=== PATIENT | male | born 1985 | race Caucasian/White ===

== ENCOUNTER 2017-09-03 21:56 | Emergency (ER) | payer OTHER ==
[~2017-09-03] VITALS: Ht 188 cm; Wt 106.1 kg
[~2017-09-03 21:56] MED LIST: Baclofen10 MG PO; Bactrim Ds Tab1 EACH PO; CEPH500; CETI5 PO; CRUTCH3 USE; CYCL10 PO; Cyclobenzaprine5 MG PO; DELTASONE20 MG PO; Esgic Tablet1 EACH PO; Flonase 0.05% N16 GM; HYDACE5325 PO; HYDR1TAB94 PO; IBUP600 PO; IBUP800 PO; LISI5 PO; METF500 PO; METO100ER PO; METPRE4DP PO; NAPR500; NAPR500 PO; NAPR550 PO; NORT50; Naprosyn500 MG PO; Norco 5-325 Ta1 EACH PO; OXCA150; OXYACE5T PO; PROM25 PO; Percocet 5-3251 EACH PO; RXNAPNA550 PO; Robaxin500 MG PO; Ultram50 MG PO; Valium5 MG PO
[2018-06-18] MEDS ORDERED: Voltaren100 GM TOP (12:42)
[2018-06-18] MEDS ORDERED: TRAM50 PO (12:42)
[2018-06-18] MEDS ORDERED: Prednisone20 MG PO (12:42)
[2018-07-29] MEDS ORDERED: IBUP800 PO (20:56)
[2018-07-29] MEDS ORDERED: Robaxin-750750 MG PO (20:56)
[2018-07-29] MEDS ORDERED: Percocet 5-3251 EACH PO (20:56)
[2018-08-02] MEDS ORDERED: Percocet 5-3251 EACH PO (15:34)
[2018-08-02] MEDS ORDERED: Prednisone20 MG PO (15:34)
[2018-08-02] MEDS ORDERED: Robaxin-750750 MG PO (15:36)
== END 2017-09-04 00:22 | disposition home or self-care (01) ==
LOC: ER 21:56
DX: S20.212A Contusion of left front wall of thorax, initial encounter (principal); K52.9 Noninfective gastroenteritis and colitis, unspecified; X58.XXXA Exposure to other specified factors, initial encounter; Z88.0 Allergy status to penicillin; Z79.899 Other long term (current) drug therapy; Z79.84 Long term (current) use of oral hypoglycemic drugs
CPT/HCPCS: 71046; 99283

== ENCOUNTER 2017-10-24 14:09 | Emergency (ER) | payer OTHER ==
[~2017-10-24] VITALS: Ht 190.5 cm; Wt 95.2 kg
[2017-10-24] MEDS ORDERED: IBUP400 PO (14:25)
[2017-10-24] MEDS ORDERED: IBUP800 PO (15:05)
[2017-10-24] MEDS ORDERED: Norco 5-325 Ta1 EACH PO (15:05)
[2018-06-18] MEDS ORDERED: Voltaren100 GM TOP (12:42)
[2018-06-18] MEDS ORDERED: TRAM50 PO (12:42)
[2018-06-18] MEDS ORDERED: Prednisone20 MG PO (12:42)
[2018-07-29] MEDS ORDERED: Robaxin-750750 MG PO (20:56)
[2018-07-29] MEDS ORDERED: IBUP800 PO (20:56)
[2018-07-29] MEDS ORDERED: Percocet 5-3251 EACH PO (20:56)
[2018-08-02] MEDS ORDERED: Percocet 5-3251 EACH PO (15:34)
[2018-08-02] MEDS ORDERED: Prednisone20 MG PO (15:34)
[2018-08-02] MEDS ORDERED: Robaxin-750750 MG PO (15:36)
== END 2017-10-24 15:17 | disposition home or self-care (01) ==
LOC: ER 14:09
DX: S63.642A Sprain of metacarpophalangeal joint of left thumb, initial encounter (principal); Z88.0 Allergy status to penicillin; X50.9XXA Other and unspecified overexertion or strenuous movements or postures, initial encounter
CPT/HCPCS: 29125; 73130; 99283

== ENCOUNTER 2017-11-12 15:30 | Emergency (ER) | payer OTHER ==
[~2017-11-12] VITALS: Ht 190.5 cm; Wt 113.4 kg
[~2017-11-12 15:30] MED LIST changes: +IBUP400 PO
[2017-11-12] MEDS ORDERED: LISI5 PO (15:40)
[2017-11-12] MEDS ORDERED: METF500 PO (15:40)
[2017-11-12] MEDS ORDERED: METO100ER PO (15:40)
[2017-11-12] MEDS ORDERED: CYCL10 PO (17:27)
[2018-06-18] MEDS ORDERED: Voltaren100 GM TOP (12:42)
[2018-06-18] MEDS ORDERED: Prednisone20 MG PO (12:42)
[2018-06-18] MEDS ORDERED: TRAM50 PO (12:42)
[2018-07-29] MEDS ORDERED: IBUP800 PO (20:56)
[2018-07-29] MEDS ORDERED: Percocet 5-3251 EACH PO (20:56)
[2018-07-29] MEDS ORDERED: Robaxin-750750 MG PO (20:56)
[2018-08-02] MEDS ORDERED: Prednisone20 MG PO (15:34)
[2018-08-02] MEDS ORDERED: Percocet 5-3251 EACH PO (15:34)
[2018-08-02] MEDS ORDERED: Robaxin-750750 MG PO (15:36)
== END 2017-11-12 17:46 | disposition home or self-care (01) ==
LOC: ER 15:30
DX: M54.2 Cervicalgia (principal); Z88.0 Allergy status to penicillin; Z79.84 Long term (current) use of oral hypoglycemic drugs; E11.9 Type 2 diabetes mellitus without complications; Z79.899 Other long term (current) drug therapy; V43.52XA Car driver injured in collision with other type car in traffic accident, initial encounter
CPT/HCPCS: 72040; 96372; 99283; J1885

== ENCOUNTER 2019-01-05 02:16 | Inpatient (IN) | payer OTHER, BC ==
[~2019-01-05] VITALS: Ht 190.5 cm; Wt 114.1 kg
[~2019-01-05 02:16] MED LIST changes: +Prednisone20 MG PO; +Robaxin-750750 MG PO; +TRAM50 PO; +Voltaren100 GM TOP
[2019-01-05 02:48] LABS: BASOPHILS ABSOLUTE AUTO 0.08 K/mm3 (0.00-0.23); BASOPHILS PERCENT AUTO 1 % (0-2); EOSINOPHILS ABSOLUTE AUTO 0.07 K/mm3 (0.00-0.68); EOSINOPHILS PERCENT AUTO 0 % (0-6); Hematocrit 48.5 % (37.0-53.0); Mean Corpuscular Volume 85 fL (80-100); Mean Platelet Volume 8.9 fL (9.1-12.4); Platelet Count 239 K/mm3 (150-400); RDW Coefficient Variation 12.7 % (11.7-14.2); RDW Standard Deviation 39.3 fL (35.1-46.3); Red Blood Cell Count 5.73 M/mm3 (4.30-5.90)
[2019-01-05] MEDS ORDERED: INSULANPEN SC (02:51)
[2019-01-05] MEDS ORDERED: TRAM50 PO (02:52)
[2019-01-05 03:16] LABS: IMMATURE GRAN ABSOLUTE AUTO 0.07 K/mm3 (0.00-0.10); IMMATURE GRAN PERCENT AUTO 0 % (0-1); LYMPHOCYTES ABSOLUTE AUTO 3.01 K/mm3 (0.84-5.20); LYMPHOCYTES PERCENT AUTO 19 % (21-46); MONOCYTES ABSOLUTE AUTO 0.72 K/mm3 (0.16-1.47); MONOCYTES PERCENT AUTO 5 % (4-13); Mean Corpuscular HGB 31.6 pg (26.0-34.0); Mean Corpuscular HGB Conc 37.3 g/dL (31.5-36.5); NEUTROPHILS ABSOLUTE AUTO 11.75 K/mm3 (1.96-9.15); NEUTROPHILS PERCENT AUTO 75 % (41-73)
[2019-01-05 03:17] LABS: Hemoglobin 18.1 g/dL (13.5-17.5)
[2019-01-05 03:40] LABS: Alanine Aminotransfer (ALT/SGP 39 U/L (12-78); Albumin, Blood 4.5 g/dL (3.4-5.0); Albumin/Globulin Ratio 1.2 (0.8-1.8); Alk Phos 132 U/L (50-136); Anion Gap 9 mmol/L (6-16); Aspartate Aminotrans (AST/SGOT 14 U/L (12-37); Bilirubin, Total 0.5 mg/dL (0.1-1.0); Blood Urea Nitrogen 17 mg/dL (8-24); Bun/Creatinine Ratio 20.8 (12.0-20.0); CO2, Blood 25 mmol/L (21-32); Calcium, Blood 9.1 mg/dL (8.5-10.1); Chloride, Blood 96 mmol/L (98-108); Creatinine, Blood 0.82 mg/dL (0.60-1.20); Globulin, Blood 3.7 g/dL (2.2-4.0); Glomerular Filtration Rate >60 (60-); Glucose, Blood 428 mg/dL (70-99); Potassium, Blood 4.1 mmol/L (3.5-5.5); Sodium, Blood 130 mmol/L (136-145); Total Protein, Blood 8.2 g/dL (6.4-8.2)
--- NOTE | 2019-01-05 06:16 | NUR ---
BLOOD SUGAR 267. KRISTEN ORDERS TO START INSULIN PER EMAR. HUMALOG AT 0730 MED SS AND LANTUS 20 UNITS AT 0900. WILL CONT TO MONITOR.
[2019-01-05 06:48] LABS: Source, Urine Clean Catch
[2019-01-05 06:52] LABS: Bilirubin, Urine Neg (Neg); Blood, Urine 1+ (Neg); Glucose Qualitative, Urine 4+ (Neg); Ketones, Urine 4+ (Neg); Leukocyte Esterase, Urine Neg (Neg); Nitrite, Urine Neg (Neg); Protein, Urine 2+ (Neg); Specific Gravity, Urine 1.015 (1.003-1.022); Urobilinogen, Urine NORM (Normal)
[2019-01-05 07:04] LABS: Appearance, Urine Clear (Clear); Bacteria Not Seen /hpf; Color, Urine Yellow (P-Yellow); Red Blood Cells, Urine Rare /hpf (0-2); Squamous Epithelial Cells Rare /hpf (Few); White Blood Cells, Urine Not Seen /hpf (0-5)
--- NOTE | 2019-01-05 07:19 | NUR ---
SHIFT SUMMARY/TRANSFER NOTE: PT ARRIVES TO UNIT VIA STRETCHER AND AMBULATES INDEPENDENTLY TO BED. PT ADMITTED FOR PANCREATITIS, AND REPORTS INJECTING "100 UNITS INSULIN" EVERY NIGHT AND DOES NOT CHECK HIS BLOOD SUGAR. PT IS A&O X 4. C/O PERIUMBILICAL PAIN, RATED 10/10. ADMINISTERED 50 MCG FENTANYL PER ORDERS. NS RUNNING @ 125 ML/HR X 2 BAGS. ON 1L VIA NC PT O2 SATS 88% IN ED. 95% UPON ARRIVAL. WILL CONT TO MONITOR AND PROVIDE CARE UNTIL PRESUMED BY ONCOMING RN.
[2019-01-05 07:40] LABS: Cholesterol 315 mg/dL (50-200)
[2019-01-05 08:12] LABS: CHOL/HDL RATIO Unable to Calculate; Triglycerides >4000 mg/dL (30-140)
[2019-01-05 08:13] LABS: LDL/HDL RATIO Unable to Calculate; Low Density Lipoprotein Chol Unable to Calculate mg/dL (0-110); Very Low Density Lipoprot Chol Unable to Calculate mg/dL (6-28)
--- NOTE | 2019-01-05 08:55 | NUR ---
Tiffany PETERSON called Dr. Calderon Re: pt c/o unmanaged pain 10/10 after given Fentanyl. Dilaudid ordered & given. Pt is now resting comfortably, easily aroused and RR: 18.
--- NOTE | 2019-01-05 10:10 | NUR ---
Pain continues to be unmanaged followed with nausea. Physician notified, pain medication frequency changed to Q 2 hours prn.
--- NOTE | 2019-01-05 10:46 | NUR ---
Patient appears to be resting comfortable in bed. Easily aroused, RR 20.
--- NOTE | 2019-01-05 15:54 | NUR ---
VS FOLLOW-UP BP 141/86 HR 134 RR 16. PT STATES BASELINE TACHYCARDIA IN 130's EVERSINCE HE HAD BACTERIAL MENINGITIS WHEN YOUNGER. WILL CONTINUE TO MONITOR VS. PT IS AFEBRILE AT 97.2 AND 95% O2 @ 1 LPM.
--- NOTE | 2019-01-05 17:40 | NUR ---
Dr. Calderon notified Re: BP 153/94 HR 130. Metoprolol was added to EMAR.
--- NOTE | 2019-01-05 17:44 | NUR ---
Shift Summary AO x 4, pleasant and cooperative with care. Able to make needs known and calls appropriately. Family has been visiting. Medicated for pain x 6, for nausea x 6 this shift. Independent in room. Refer to previous notes Re: VS. Will continue to monitor until shift report given to next RN.
--- NOTE | 2019-01-05 18:05 | NUR ---
STUDENT HAD CARE OF PT TODAY, PLEASE REFER TO STUDENT NOTE FOR SHIFT SUMMARY.
[2019-01-06 05:27] LABS: BASOPHILS ABSOLUTE AUTO 0.03 K/mm3 (0.00-0.23); BASOPHILS PERCENT AUTO 0 % (0-2); EOSINOPHILS ABSOLUTE AUTO 0.04 K/mm3 (0.00-0.68); EOSINOPHILS PERCENT AUTO 0 % (0-6); Hematocrit 50.3 % (37.0-53.0); Hemoglobin 17.7 g/dL (13.5-17.5); IMMATURE GRAN ABSOLUTE AUTO 0.07 K/mm3 (0.00-0.10); IMMATURE GRAN PERCENT AUTO 1 % (0-1); LYMPHOCYTES PERCENT AUTO 17 % (21-46); MONOCYTES ABSOLUTE AUTO 0.67 K/mm3 (0.16-1.47); MONOCYTES PERCENT AUTO 5 % (4-13); Mean Corpuscular HGB 30.4 pg (26.0-34.0); Mean Corpuscular HGB Conc 35.2 g/dL (31.5-36.5); Mean Corpuscular Volume 86 fL (80-100); NEUTROPHILS ABSOLUTE AUTO 10.06 K/mm3 (1.96-9.15); NEUTROPHILS PERCENT AUTO 77 % (41-73); Platelet Count 218 K/mm3 (150-400); RDW Coefficient Variation 13.7 % (11.7-14.2); RDW Standard Deviation 42.7 fL (35.1-46.3); Red Blood Cell Count 5.82 M/mm3 (4.30-5.90); White Blood Cell Count 13.07 K/mm3 (4.00-11.30)
[2019-01-06 06:14] LABS: Alanine Aminotransfer (ALT/SGP 30 U/L (12-78); Albumin, Blood 3.3 g/dL (3.4-5.0); Albumin/Globulin Ratio 0.8 (0.8-1.8); Alk Phos 91 U/L (50-136); Anion Gap 9 mmol/L (6-16); Aspartate Aminotrans (AST/SGOT 53 U/L (12-37); Bilirubin, Total 1.1 mg/dL (0.1-1.0); Blood Urea Nitrogen 8 mg/dL (8-24); Bun/Creatinine Ratio 15.2 (12.0-20.0); CO2, Blood 23 mmol/L (21-32); Calcium, Blood 8.4 mg/dL (8.5-10.1); Chloride, Blood 106 mmol/L (98-108); Creatinine, Blood 0.53 mg/dL (0.60-1.20); Globulin, Blood 4.4 g/dL (2.2-4.0); Glomerular Filtration Rate >60 (60-); Glucose, Blood 183 mg/dL (70-99); Magnesium, Blood 2.1 mg/dL (1.6-2.4); Potassium, Blood 4.6 mmol/L (3.5-5.5); Sodium, Blood 138 mmol/L (136-145); Total Protein, Blood 7.7 g/dL (6.4-8.2)
--- NOTE | 2019-01-06 07:40 | NUR ---
a+o able to walk to bathroom, pain reduced with q2 hourly pain meds, calllight inreach, walking rounds completed with day staff
[2019-01-06] MEDS ORDERED: GABA300 PO (11:40)
[2019-01-06] MEDS ORDERED: METO100 PO (11:50)
--- NOTE | 2019-01-06 12:33 | NUR ---
PT HAS BEEN TACHY IN THE 130'S, DR LIRA INCREASED METOPROLOL TO 50MG BID, PT REPORTS HE NORMALLY TAKES METOPROLOL TARTRATE 100MG PO BID AT HOME, THIS WAS CONFIRMED WITH [facility]. DR LIRA NOTIFIED AND ORDER CHANGED TO 100MG BID WITH A ONE TIME DOSE OF 50MG NOW.
--- NOTE | 2019-01-06 17:22 | NUR ---
SHIFT SUMMARY- PT A/OX4, INDEP IN ROOM AND HALLS. PT REMAINS NPO T/O THE SHIFT. PT RECEIVING 2MG IV DILAUDID APROX EVERY 2 HOURS, THIS EVENING PT REPORTS SLIGHT IMPROVEMENT TO PAIN OF A 5/10, ONLY 1MG IV DILAUDID WITH GOOD RESULTS. REGLAN GIVEN X1 THIS AM, PT HAS DENIED ANY FURTHER NAUSEA. PT HAS REMAINED TACHY T/O THE DAY, PT NOTED TO BE ON METOPROLOL OF 100MG BID AT HOME, PT ONLY RECEIVING 25MG BID AT THE HOSPITAL. DOSE CHANGED TO HOME DOSE AND ONE TIME DOSE OF 50MG GIVEN THIS AFTERNOON. CARPENTER GENERAL SPOKE WITH PT REGARDING A1C AND DIABETES, PT WILL NEED A SCRIPT FOR GLUCOSE METER AND TEST STRIPS UPON DISCHARGE WELL A REFERRAL TO DR LOPEZ.
[2019-01-07 04:31] LABS: BASOPHILS ABSOLUTE AUTO 0.01 K/mm3 (0.00-0.23); BASOPHILS PERCENT AUTO 0 % (0-2); EOSINOPHILS ABSOLUTE AUTO 0.02 K/mm3 (0.00-0.68); EOSINOPHILS PERCENT AUTO 0 % (0-6); Hematocrit 46.1 % (37.0-53.0); Hemoglobin 15.3 g/dL (13.5-17.5); IMMATURE GRAN ABSOLUTE AUTO 0.05 K/mm3 (0.00-0.10); IMMATURE GRAN PERCENT AUTO 1 % (0-1); LYMPHOCYTES ABSOLUTE AUTO 1.18 K/mm3 (0.84-5.20); LYMPHOCYTES PERCENT AUTO 14 % (21-46); MONOCYTES ABSOLUTE AUTO 0.65 K/mm3 (0.16-1.47); MONOCYTES PERCENT AUTO 8 % (4-13); Mean Corpuscular HGB 29.7 pg (26.0-34.0); Mean Corpuscular HGB Conc 33.2 g/dL (31.5-36.5); Mean Platelet Volume 9.1 fL (9.1-12.4); NEUTROPHILS ABSOLUTE AUTO 6.65 K/mm3 (1.96-9.15); NEUTROPHILS PERCENT AUTO 78 % (41-73); Platelet Count 145 K/mm3 (150-400); RDW Coefficient Variation 13.8 % (11.7-14.2); RDW Standard Deviation 46.1 fL (35.1-46.3); Red Blood Cell Count 5.16 M/mm3 (4.30-5.90); White Blood Cell Count 8.56 K/mm3 (4.00-11.30)
[2019-01-07 04:36] LABS: Mean Corpuscular Volume 89 fL (80-100)
[2019-01-07 04:56] LABS: Anion Gap 7 mmol/L (6-16); Blood Urea Nitrogen 11 mg/dL (8-24); Bun/Creatinine Ratio 17.2 (12.0-20.0); CO2, Blood 27 mmol/L (21-32); Calcium, Blood 8.2 mg/dL (8.5-10.1); Chloride, Blood 104 mmol/L (98-108); Creatinine, Blood 0.64 mg/dL (0.60-1.20); Glomerular Filtration Rate >60 (60-); Glucose, Blood 164 mg/dL (70-99); Magnesium, Blood 2.1 mg/dL (1.6-2.4); Phosphorus, Blood 1.6 mg/dL (2.5-4.9); Sodium, Blood 138 mmol/L (136-145)
--- NOTE | 2019-01-07 07:28 | NUR ---
call light in reach, infusing, room air, walking rounds completed with day staff.
--- NOTE | 2019-01-07 15:38 | NUR ---
SUMMARY PT IS A/O X4, UP IND IN ROOM. DX PANCREATITIS. HE STATE CONTINUING L LOWER ABDOMINAL PAIN IMPROVING SOMEWHAT, STATE @ X'S MILD NAUSEA. DR LIRA IN TO SEE HIM THIS AM EXPLAIN LIPASE DROP SIGNIFICANTLY FROM 4988 @ ADMIT TO 1372 THIS AM. STOP IVF, STATE OK NO IV SITE, CHANGE MEDS TO ORAL FORM, ADV DIET TOLERATED. CL FOR LUNCH TOLERATED WELL, ADV TO FL. HAVE GIVEN PO DILAUDID 2MG APPROX Q4 FOR PAIN RELIEF/CONTROL. VS BASELINE, HR TACHY 110'S, PT STATE THIS IS CHRONIC-ON METOPROLOL. ENCOURAGED PT TO AMBULATE.
--- NOTE | 2019-01-07 23:43 | NUR ---
10 PAIN PT C/O 06/03 PAIN TO LOWER QUADRANT, UNRESOLVED BY PO MEDS IN EMAR. RESPIRATIONS 40, PULSE 109, BP 124/74, TEMP 96.6. PLACED CALL TO SO TO REPORT FINDINGS. ORDERS 10MG IV DILAUDID Q2H PRN X2 DOSES. LUCY MC, PSYCHIATRY PHYSICIAN, AT BEDSIDE OBTAINING IV ACCESS THEN WILL ADMINISITER IV NARCOTIC.
--- NOTE | 2019-01-08 01:41 | NUR ---
PT NOW C/O OF RLQ PAIN AND PAIN WITH URINATION ("BURNING"). PT REPORTS PAIN c URINATION IS NEW. MEDICATED WITH 50 MG TRAMADOL. WILL PASS THIS ON IN DAYSHIFT REPORT.
[2019-01-08 05:34] LABS: Anion Gap 9 mmol/L (6-16); Blood Urea Nitrogen 13 mg/dL (8-24); CO2, Blood 26 mmol/L (21-32); Calcium, Blood 8.5 mg/dL (8.5-10.1); Chloride, Blood 101 mmol/L (98-108); Creatinine, Blood 0.62 mg/dL (0.60-1.20); Glomerular Filtration Rate >60 (60-); Glucose, Blood 161 mg/dL (70-99); Magnesium, Blood 2.1 mg/dL (1.6-2.4); Phosphorus, Blood 2.7 mg/dL (2.5-4.9); Potassium, Blood 3.7 mmol/L (3.5-5.5); Sodium, Blood 136 mmol/L (136-145)
--- NOTE | 2019-01-08 05:43 | NUR ---
SHIFT SUMMARY - PT WITH INCREASED PAIN TONIGHT, C/O PAIN TO SEVERAL DIFFERENT LOCATIONS IN THE ABDOMEN. WHEN ASSESSING PAIN AND LOCATION, PT POINTS AT DIFFERENT SPOTS DURING EACH ASSESSMENT. RLQ, LLQ, AND RUQ ARE ALL PAINFUL. PT REPORTS PAIN IS 10/10. RECIEVED ORDER FROM RIZZO TO REGAIN IV ACCESS AND 2 DOSES OF 1 MG IV DILAUDID Q2H PRN. INFORMED PT THAT ONLY 2 DOSES WERE AVAILABLE. PT REQUIRED BOTH DOSES WITHIN 2-HR TIME FRAME. PT ALSO RECIEVES 2MG PO DILAUDID AND 50MG PO TRAMADOL PER ORDERS. PT REPORTS PAIN NEVER RESOLVES. BP REMAINS STABLE THROUGH ALL EVENTS; PT CHRONICALLY TACHYCARDIAC 110s-120s. AFEBRILE. LIPASE THIS AM IS WNL AT 381. CBG MONITORED Q6H. ENCOURAGED PT TO TRY SOFT FOODS (CURRENTLY TOLERATING FULL LIQUIDS), HOWEVER PT REFUSED. NO OTHER CHANGES TO REPORT. WILL CONT TO MONITOR AND PROVIDE CARE UNTIL PRESUMED BY ONCOMING RN.
[2019-01-08 06:07] LABS: Source, Urine Clean Catch
[2019-01-08 06:12] LABS: Bilirubin, Urine Neg (Neg); Blood, Urine 2+ (Neg); Glucose Qualitative, Urine 4+ (Neg); Ketones, Urine 4+ (Neg); Leukocyte Esterase, Urine Neg (Neg); Nitrite, Urine Neg (Neg); Protein, Urine 3+ (Neg); Urobilinogen, Urine 1+ (Normal)
[2019-01-08 06:45] LABS: Appearance, Urine Clear (Clear); Bacteria Rare /hpf; Color, Urine Yellow (P-Yellow); Mucus Light (0-Heavy); White Blood Cells, Urine 0-2 /hpf (0-5)
[2019-01-08 06:46] LABS: Squamous Epithelial Cells Rare /hpf (Few)
--- NOTE | 2019-01-08 08:53 | NUR ---
NOTIFIED DR. LIRA PT REPORTS PO PAIN MEDICATION NOT BRINGING HIS PAIN LEVEL DOWN. DR. LIRA REPORTS HE IS NOT GOING TO ORDER ANYTHING FURTHER FOR PAIN DUE TO HX OF FREQUENT PAIN MED SEEKING BEHAVIOR IN THE ER AND HE IS PREPARING PT FOR D/C. PT'S LIPASE LEVEL WNL. NO NEW ORDERS AT THIS TIME.
--- NOTE | 2019-01-08 10:35 | NUR ---
DR. LIRA SAID TO ORDER ONE TIME DOSE OF GI COCKTAIL TO BE GIVEN NOW, MALOX 30ML Q1H PRN AND 40MG PO PROTONIX BID. NO OTHER NEW ORDERS AT THIS TIME.
[2019-01-08] MEDS ORDERED: Percocet 7.5-31 EACH PO (11:04)
--- NOTE | 2019-01-08 18:16 | NUR ---
SHIFT SUMMARY- PT AXO X4. PT C/O SEVERE RLQ/LLQ PAIN. MEDS GIVEN PER EMAR. BOWEL TONES HYPOACTIVE. PT C/O NAUSEA. MEDS GIVEN PER EMAR. PT TOLERATED DINNER. PT'S PAIN LEVEL DOWN TO A 5/10 THIS PM. DENIES SOB. RESP E/U ON RA. PT WENT FOR CT OF ABDOMEN TODAY. INDEPENDENT IN THE ROOM. NO OTHER SIGNIFICANT CHANGES THIS SHIFT.
--- NOTE | 2019-01-09 05:05 | NUR ---
PATIENT C/O PAIN 4-02/01, REQUESTED PAIN MEDS MUCH OF THE SHIFT. AT ONE POINT HE C/O A HEADACHE AND I REQUESTED IBUPROFEN FOR HIM, AND GOT A 1X DOSE NOW FOR 600 MG. PATIENT RECEIVED PAIN MEDS PER ORDER, ALSO RECEIVED INSULIN COVERAGE OF HIS POC GLUCOSE LEVELS. JORDAN CONTINUE DID YOU TIRED OF ALL THAT IN
--- NOTE | 2019-01-09 12:42 | NUR ---
DISCONTINUED UNCHARTED IV PT BEING DISCHARGED HOME TODAY. IV DC'D WNL. CATHETER INTACT. NO S/SX OF INFILTRATION. PT TOLERATED WELL.
[2019-01-09] MEDS ORDERED: PANT40 PO (12:55)
[2019-01-09] MEDS ORDERED: ALMACONE PO (12:55)
--- NOTE | 2019-01-09 13:58 | NUR ---
DISCHARGE NOTE DISCONTINUED IV WNL. PRESCRIPTIONS FAXED TO PREFERED PHARMACY. HARDCOPY PRESCRIPTIONS PROVIDED TO PT. PROVIDED PT WITH HARDCOPY AND VERBAL INSTRUCTIONS FOR DISCHARGE INCLUDING: DIAGNOSES, PRESCRIPTIONS AND FOLLOW UP APPOINTMENTS. GATHERED PT'S PERSONAL BELONGINGS. PT DRESSED SELF IN PERSONAL CLOTHING. TARRING MACHINE OPERATOR ACCOMPANIED PT OUT VIA WHEELCHAIR. PT AND FAMILY HAD NO FURTHER QUESTIONS.
== END 2019-01-09 13:23 | disposition home or self-care (01) | DRG 440 ==
LOC: ER 02:16 → MEDS 04:37 → ENPENDDIS 01-08 12:32 → EDPENDDIS 01-08 12:32 → MEDS 01-09 13:23
PROVIDERS: Emergency Medicine; Hospitalist; ADMIT Internal Medicine
DX: K85.90 Acute pancreatitis without necrosis or infection, unspecified (principal); E11.65 Type 2 diabetes mellitus with hyperglycemia; Z79.4 Long term (current) use of insulin; I10 Essential (primary) hypertension; E78.49 Other hyperlipidemia; E78.1 Pure hyperglyceridemia; E86.0 Dehydration; R00.0 Tachycardia, unspecified
CPT/HCPCS: 36415; 74177; 76705; 80048; 80053; 80061; 81001; 82947; 83036; 83690; 83735; 84100; 85025; 85027; 96361; 96374; 96375; 96376; 99285-25; J1170; J1650; J2405; J2550; J2765; J3010; J7030; Q9967

== ENCOUNTER 2019-01-11 12:10 | Inpatient (IN) | payer BC, OTHER ==
[~2019-01-11] VITALS: Ht 190.5 cm; Wt 112.6 kg
[~2019-01-11 12:10] MED LIST changes: +ALMACONE PO; +GABA300 PO; +INSULANPEN SC; +METO100 PO; +PANT40 PO; +Percocet 7.5-31 EACH PO
[2019-01-11 13:29] LABS: Hematocrit 43.4 % (37.0-53.0); Hemoglobin 14.6 g/dL (13.5-17.5); Mean Corpuscular HGB 29.3 pg (26.0-34.0); Mean Corpuscular HGB Conc 33.6 g/dL (31.5-36.5); Mean Corpuscular Volume 87 fL (80-100); Mean Platelet Volume 9.2 fL (9.1-12.4); Platelet Count 308 K/mm3 (150-400); RDW Coefficient Variation 13.2 % (11.7-14.2); RDW Standard Deviation 42.5 fL (35.1-46.3); Red Blood Cell Count 4.99 M/mm3 (4.30-5.90); White Blood Cell Count 13.58 K/mm3 (4.00-11.30)
[2019-01-11 13:40] LABS: Alanine Aminotransfer (ALT/SGP 31 U/L (12-78); Albumin, Blood 2.7 g/dL (3.4-5.0); Albumin/Globulin Ratio 0.5 (0.8-1.8); Alk Phos 125 U/L (50-136); Anion Gap 10 mmol/L (6-16); Aspartate Aminotrans (AST/SGOT 14 U/L (12-37); Bilirubin, Total 0.9 mg/dL (0.1-1.0); Blood Urea Nitrogen 10 mg/dL (8-24); CO2, Blood 23 mmol/L (21-32); Chloride, Blood 101 mmol/L (98-108); Globulin, Blood 5.6 g/dL (2.2-4.0); Glomerular Filtration Rate >60 (60-); Glucose, Blood 178 mg/dL (70-99); Potassium, Blood 3.5 mmol/L (3.5-5.5); Sodium, Blood 134 mmol/L (136-145); Total Protein, Blood 8.3 g/dL (6.4-8.2)
[2019-01-11 14:43] LABS: BAND PERCENT MAN 10 % (0-8); BASOPHILS ABSOLUTE MAN 0.13 K/mm3 (0.00-0.23); BASOPHILS PERCENT MAN 1 % (0-2); EOSINOPHILS PERCENT MAN 0 % (0-6); LYMPHOCYTES ABSOLUTE MAN 2.17 K/mm3 (0.84-5.20); LYMPHOCYTES PERCENT MAN 16 % (21-46); METAMYELOCYTE ABSOLUTE MAN 0.13 K/mm3 (0.00-0.00); METAMYELOCYTE PERCENT MAN 1 % (0-0); MONOCYTES ABSOLUTE MAN 1.08 K/mm3 (0.16-1.47); MONOCYTES PERCENT MAN 8 % (4-13); NEUTROPHILS ABSOLUTE MAN 10.04 K/mm3 (1.96-9.15); SEG NEUTROPHILS PERCENT MAN 64 % (41-73); TOTAL CELLS COUNTED 100
[2019-01-11 14:50] LABS: Base Excess Venous -2.3 mmol/L; Bicarbonate Venous 23.3 mmol/L (24.0-30.0); PO2 Venous 123 mmHg (38-42); pH Blood Venous 7.46 (7.34-7.37)
[2019-01-11] MEDS ORDERED: Robaxin750 MG PO (15:10)
[2019-01-11 18:13] LABS: Source, Urine Voided
[2019-01-11 18:16] LABS: Bilirubin, Urine Neg (Neg); Blood, Urine 1+ (Neg); Glucose Qualitative, Urine 3+ (Neg); Ketones, Urine 4+ (Neg); Leukocyte Esterase, Urine Neg (Neg); Nitrite, Urine Neg (Neg); Protein, Urine 1+ (Neg); Urobilinogen, Urine NORM (Normal)
[2019-01-11 18:38] LABS: Appearance, Urine Hazy (Clear); Color, Urine Yellow (P-Yellow)
[2019-01-11 18:40] LABS: Squamous Epithelial Cells Not Seen /hpf (Few)
[2019-01-11 18:42] LABS: Bacteria Rare /hpf; Red Blood Cells, Urine 0-2 /hpf (0-2); White Blood Cells, Urine 0-2 /hpf (0-5)
--- NOTE | 2019-01-11 20:09 | NUR ---
ADMIT NOTE RECEIVED REPORT FORM NICHOLAS HUMPHREY IN ED. PT TO ROOM VIA ZEN AT 1655. PT ORIENTED TO ROOM AND CALL LIGHT SYSTEM PT EDUCATED ON FALL RISK AND USE OF CALL LIGHT PRIOR TO GETTING UP. PT A&OX4. CALM AND COOPERATIVE WITH CARE. PT RESTING IN BED DURING SHIFT. PT REPORTS 8-9/10 PAIN IN LEFT SIDE OF ABD, MEDICATED WITH DILAUDID 1MG IV x1. CALLED DR REDD TO CLARIFY DILAUDID ORDERS, NEW ORDERS ENTERED AND NEW PARAMETERS ENTERED ON METOPROLOL. PT REPORTS NAUSEA, MEDICATED x1 WITH ZOFRAN. BREATHING TACHYPNIC, PT STATES IT DUE TO THE PAIN, >92% ON RA. PT RECEIVING LR AT 200ML/HR. NPO EXCEPT ICE CHIPS. VSS. NO OTHER ACUTE CHANGES NOTED DURING SHIFT. REPORT GIVEN TO ONCOMING RN.
--- NOTE | 2019-01-12 05:01 | NUR ---
Shift summary: Pt having alot of left lower abdominal pain. Pt getting dilaudid and tylenol with some relief. Pt npo x ice chips. VSS. Pain seems to get worse every time he gets up to go to bathroom.
[2019-01-12 05:39] LABS: Hematocrit 37.9 % (37.0-53.0); Hemoglobin 12.5 g/dL (13.5-17.5); Mean Corpuscular HGB 28.7 pg (26.0-34.0); Mean Corpuscular Volume 87 fL (80-100); Mean Platelet Volume 8.8 fL (9.1-12.4); Platelet Count 265 K/mm3 (150-400); RDW Coefficient Variation 13.1 % (11.7-14.2); Red Blood Cell Count 4.36 M/mm3 (4.30-5.90); White Blood Cell Count 13.53 K/mm3 (4.00-11.30)
[2019-01-12 06:10] LABS: Anion Gap 13 mmol/L (6-16); Blood Urea Nitrogen 6 mg/dL (8-24); Bun/Creatinine Ratio 20.4 (12.0-20.0); CO2, Blood 23 mmol/L (21-32); Calcium, Blood 7.5 mg/dL (8.5-10.1); Chloride, Blood 101 mmol/L (98-108); Creatinine, Blood 0.29 mg/dL (0.60-1.20); Glomerular Filtration Rate >60 (60-); Glucose, Blood 118 mg/dL (70-99); Potassium, Blood 3.7 mmol/L (3.5-5.5); Sodium, Blood 137 mmol/L (136-145); Triglycerides 121 mg/dL (30-140)
[2019-01-12 06:16] LABS: BAND PERCENT MAN 1 % (0-8); BASOPHILS PERCENT MAN 0 % (0-2); EOSINOPHILS ABSOLUTE MAN 0.13 K/mm3 (0.00-0.68); EOSINOPHILS PERCENT MAN 1 % (0-6); LYMPHOCYTES ABSOLUTE MAN 1.62 K/mm3 (0.84-5.20); LYMPHOCYTES PERCENT MAN 12 % (21-46); METAMYELOCYTE ABSOLUTE MAN 0.13 K/mm3 (0.00-0.00); METAMYELOCYTE PERCENT MAN 1 % (0-0); MONOCYTES ABSOLUTE MAN 1.08 K/mm3 (0.16-1.47); MONOCYTES PERCENT MAN 8 % (4-13); MYELOCYTE ABSOLUTE MAN 0.13 K/mm3 (0.00-0.00); MYELOCYTE PERCENT MAN 1 % (0-0); NEUTROPHILS ABSOLUTE MAN 10.41 K/mm3 (1.96-9.15); SEG NEUTROPHILS PERCENT MAN 76 % (41-73); TOTAL CELLS COUNTED 100
--- NOTE | 2019-01-12 14:48 | NUR ---
Advance Directive Education/Spiritual care visit conducted. Patient is lying in bed and alert when I enter the room. Patient shares briefly about his family and about his medical issues. I talk with patient about the importance and process of an advance directive. Patient stated that he and his had been discussing this topic and so he is thankful to get the information. I left the advance directive with him to discuss with his at a later time. I also provided prayer for the patient and he responded well and thanked me for the prayer.
--- NOTE | 2019-01-12 17:35 | NUR ---
SHIFT SUMAM PT AXO, PLEASANT AND COOPERATIVE WITH CARE. UP AD BETTY IN ROOM THOUGH PT IS PAINFUL WITH MOVEMENT AND THEREFORE REMAINS MOSTLY IN BED. PT MEDICATED FOR PAIN PER EMAR. THOUGH AT [address] BURGOS CONCERNING PAIN CONTROL. DR BURGOS TO INPUT NEW ORDERS AT THIS TIME. PT HAD UPPER ENDOSCOPY THIS SHIFT, SEE NOTE FROM GI PHYSICIAN. IV PATENT AND INFUSING PER EMAR AT THIS TIME. PULSE AND BLOOD PRESSURE ELEVATED, DR BURGOS AWARE, NURSE MEDICATING PER EMAR. BED IN LOW POSITION, CALL LIGHT WITHIN REACH, PT CALLS APPROPRIATELY WHEN A NEED ARISIES.
--- NOTE | 2019-01-13 05:02 | NUR ---
Shift summary: Pt did better with pain control last pm. Pt recieved oxycodone, tylenol, and robaxin and was able to sleep. Pt still having alot of left lower quadrant pain. IV fluids at 200/hour. Pt up ad phoebe to bathroom. Pt not tolerating clear liquid diet so gave pt some zofran with some relief. VSS
[2019-01-13] MEDS ORDERED: Acetaminophen650 M1 PO (14:08)
[2019-01-13] MEDS ORDERED: TRAM50 PO (14:09)
--- NOTE | 2019-01-13 14:37 | NUR ---
1430 PT DISCHARGED HOME VIA PERSONAL VEHICLE ACCOMPANIED AND DRIVEN BY FAMILY. PT REQUESTED TO SELF AMBULATE TO FACILITY ENTRANCE. IV REMOVED. PRESCRIPTION FOR TRAMODOL GIVEN TO PT. D/C PAPERWORK REVIEWED WITH PT AND COPY PROVIDED.
[2019-01-14 13:07] LABS: IMMUNOGLOBULIN G, QN, SERUM 558 mg/dL (700-1600)
== END 2019-01-13 14:40 | disposition home or self-care (01) | DRG 439 ==
LOC: ER 12:10 → MEDS 15:02 → ENPENDDIS 01-13 12:47 → MEDS 01-13 14:40
PROVIDERS: Emergency Medicine; Physician Assistant; Student in an Organized Health Care Education/Training Program; ADMIT Internal Medicine
PROC: 0DJ08ZZ Inspection of Upper Intestinal Tract, Via Natural or Artificial Opening Endoscopic (ICD-10-PCS; principal; 2019-01-12 13:00)
DX: K86.1 Other chronic pancreatitis (principal); E87.1 Hypo-osmolality and hyponatremia; I10 Essential (primary) hypertension; E11.9 Type 2 diabetes mellitus without complications; Z79.4 Long term (current) use of insulin; E78.1 Pure hyperglyceridemia
CPT/HCPCS: 36415; 71046; 74177; 76705; 80048; 80053; 81001; 82787; 82803; 82947; 83605; 83690; 84478; 85025; 87040; 96361; 96374-59; 96375; 96376; 99285-25; C9113; J1170; J1650; J2250; J2405; J2704; J7030; J7120; Q9967

== ENCOUNTER 2019-08-24 17:06 | Emergency (ER) | payer OTHER ==
[~2019-08-24] VITALS: Ht 190.5 cm; Wt 108.9 kg
[~2019-08-24 17:06] MED LIST changes: +Acetaminophen650 M1 PO; +Robaxin750 MG PO
[2019-08-24] MEDS ORDERED: LISI5 PO (17:21)
[2019-08-24] MEDS ORDERED: BASAGLAR K100 UNIT/2 SC (17:22)
[2019-08-24 17:36] LABS: BASOPHILS ABSOLUTE AUTO 0.02 K/mm3 (0.00-0.23); BASOPHILS PERCENT AUTO 0 % (0-2); EOSINOPHILS ABSOLUTE AUTO 0.04 K/mm3 (0.00-0.68); EOSINOPHILS PERCENT AUTO 0 % (0-6); Hematocrit 47.2 % (37.0-53.0); Hemoglobin 16.4 g/dL (13.5-17.5); IMMATURE GRAN ABSOLUTE AUTO 0.03 K/mm3 (0.00-0.10); IMMATURE GRAN PERCENT AUTO 0 % (0-1); LYMPHOCYTES PERCENT AUTO 27 % (21-46); MONOCYTES ABSOLUTE AUTO 0.47 K/mm3 (0.16-1.47); MONOCYTES PERCENT AUTO 5 % (4-13); Mean Corpuscular HGB 30.2 pg (26.0-34.0); Mean Corpuscular HGB Conc 34.7 g/dL (31.5-36.5); Mean Corpuscular Volume 87 fL (80-100); NEUTROPHILS ABSOLUTE AUTO 6.97 K/mm3 (1.96-9.15); NEUTROPHILS PERCENT AUTO 68 % (41-73); Platelet Count 196 K/mm3 (150-400); RDW Standard Deviation 38.5 fL (35.1-46.3); Red Blood Cell Count 5.43 M/mm3 (4.30-5.90); White Blood Cell Count 10.33 K/mm3 (4.00-11.30)
[2019-08-24 17:57] LABS: Alanine Aminotransfer (ALT/SGP 39 U/L (12-78); Alk Phos 103 U/L (50-136); Anion Gap 7 mmol/L (6-16); Aspartate Aminotrans (AST/SGOT 19 U/L (12-37); Bilirubin, Total 0.6 mg/dL (0.1-1.0); Blood Urea Nitrogen 13 mg/dL (8-24); Bun/Creatinine Ratio 20.1 (12.0-20.0); CO2, Blood 23 mmol/L (21-32); Calcium, Blood 9.1 mg/dL (8.5-10.1); Chloride, Blood 110 mmol/L (98-108); Creatinine, Blood 0.65 mg/dL (0.60-1.20); Globulin, Blood 4.1 g/dL (2.2-4.0); Glomerular Filtration Rate >60 (60-); Glucose, Blood 236 mg/dL (70-99); Potassium, Blood 3.7 mmol/L (3.5-5.5); Sodium, Blood 140 mmol/L (136-145); Total Protein, Blood 8.1 g/dL (6.4-8.2)
[2019-08-24 19:45] LABS: Source, Urine Clean Catch
[2019-08-24 19:50] LABS: Bilirubin, Urine Neg (Neg); Blood, Urine Neg (Neg); Glucose Qualitative, Urine 4+ (Neg); Ketones, Urine 1+ (Neg); Leukocyte Esterase, Urine Neg (Neg); Nitrite, Urine Neg (Neg); Protein, Urine Neg (Neg); Urobilinogen, Urine NORM (Normal)
[2019-08-24 19:59] LABS: Appearance, Urine Clear (Clear); Color, Urine Yellow (P-Yellow); Specific Gravity, Urine 1.025 (1.003-1.022)
[2019-08-24] MEDS ORDERED: Norco 5-325 Ta1 EACH PO (21:42)
[2019-08-24] MEDS ORDERED: Zofran4 MG PO (22:27)
== END 2019-08-24 22:33 | disposition home or self-care (01) ==
LOC: ER 17:06
PROVIDERS: Emergency Medicine
DX: R10.13 Epigastric pain (principal); E11.9 Type 2 diabetes mellitus without complications; Z88.0 Allergy status to penicillin; Z79.899 Other long term (current) drug therapy; Z79.4 Long term (current) use of insulin; Z87.891 Personal history of nicotine dependence
CPT/HCPCS: 36415; 74177; 76705; 80053; 81003; 83690; 85025; 96361; 96374; 96375; 96376; 99284-25; A9270; J2270; J2405; J7030; Q9967

== ENCOUNTER 2020-07-30 19:36 | Emergency (ER) | payer OTHER ==
[~2020-07-30] VITALS: Ht 188 cm; Wt 111.1 kg
[~2020-07-30 19:36] MED LIST changes: +BASAGLAR K100 UNIT/2 SC; +Zofran4 MG PO
[2020-07-30] MEDS ORDERED: BASAGLAR K100 UNIT/5 SC (20:07)
[2020-07-30 20:26] LABS: BASOPHILS ABSOLUTE AUTO 0.03 K/mm3 (0.00-0.23); BASOPHILS PERCENT AUTO 0 % (0-2); EOSINOPHILS ABSOLUTE AUTO 0.09 K/mm3 (0.00-0.68); EOSINOPHILS PERCENT AUTO 1 % (0-6); Hematocrit 46.9 % (37.0-53.0); Hemoglobin 16.3 g/dL (13.5-17.5); IMMATURE GRAN ABSOLUTE AUTO 0.05 K/mm3 (0.00-0.10); IMMATURE GRAN PERCENT AUTO 1 % (0-1); LYMPHOCYTES ABSOLUTE AUTO 2.77 K/mm3 (0.84-5.20); LYMPHOCYTES PERCENT AUTO 27 % (21-46); MONOCYTES PERCENT AUTO 7 % (4-13); Mean Corpuscular HGB 29.5 pg (26.0-34.0); Mean Corpuscular HGB Conc 34.8 g/dL (31.5-36.5); Mean Corpuscular Volume 85 fL (80-100); Mean Platelet Volume 8.7 fL (9.1-12.4); NEUTROPHILS ABSOLUTE AUTO 6.56 K/mm3 (1.96-9.15); NEUTROPHILS PERCENT AUTO 64 % (41-73); Platelet Count 203 K/mm3 (150-400); RDW Coefficient Variation 11.7 % (11.7-14.2); RDW Standard Deviation 35.9 fL (35.1-46.3); Red Blood Cell Count 5.52 M/mm3 (4.30-5.90)
[2020-07-30 20:44] LABS: Alanine Aminotransfer (ALT/SGP 26 U/L (12-78); Albumin, Blood 3.9 g/dL (3.4-5.0); Alk Phos 133 U/L (50-136); Anion Gap 9 mmol/L (6-16); Aspartate Aminotrans (AST/SGOT 12 U/L (12-37); Bilirubin, Total 0.4 mg/dL (0.1-1.0); Blood Urea Nitrogen 11 mg/dL (8-24); Bun/Creatinine Ratio 18.2 (12.0-20.0); CO2, Blood 22 mmol/L (21-32); Chloride, Blood 107 mmol/L (98-108); Globulin, Blood 3.8 g/dL (2.2-4.0); Glomerular Filtration Rate >60 (60-); Glucose, Blood 269 mg/dL (70-99); Potassium, Blood 3.7 mmol/L (3.5-5.5); Sodium, Blood 138 mmol/L (136-145); Total Protein, Blood 7.7 g/dL (6.4-8.2)
[2020-07-30 21:10] LABS: CPK Creatine Kinase 40 U/L (39-308)
[2020-07-30 21:53] LABS: Influenza A, PCR Negative (NEGATIVE); Influenza B, PCR Negative (NEGATIVE); Resp Syncytial Virus, PCR Negative (NEGATIVE); SARS-Cov-2 (COVID-19) PCR, MMC Negative (NEGATIVE)
== END 2020-07-30 22:49 | disposition home or self-care (01) ==
LOC: ER 19:36
PROVIDERS: Emergency Medicine
DX: J06.9 Acute upper respiratory infection, unspecified (principal); E11.9 Type 2 diabetes mellitus without complications; Z20.828 Contact with and (suspected) exposure to other viral communicable diseases; Z88.0 Allergy status to penicillin; Z79.4 Long term (current) use of insulin; Z79.899 Other long term (current) drug therapy; Z87.891 Personal history of nicotine dependence
CPT/HCPCS: 0241U; 36415; 71045; 80053; 82550; 85025; 93005; 93010; 96374; 96375; 99285-25; J1885; J3010; J7030

== ENCOUNTER 2021-04-03 18:48 | Emergency (ER) | payer OTHER ==
[~2021-04-03] VITALS: Ht 190.5 cm; Wt 106.1 kg
[~2021-04-03 18:48] MED LIST changes: +BASAGLAR K100 UNIT/5 SC
[2021-04-03 20:21] LABS: BASOPHILS ABSOLUTE AUTO 0.01 K/mm3 (0.00-0.23); BASOPHILS PERCENT AUTO 0 % (0-2); EOSINOPHILS PERCENT AUTO 0 % (0-6); Hemoglobin 16.4 g/dL (13.5-17.5); IMMATURE GRAN ABSOLUTE AUTO 0.02 K/mm3 (0.00-0.10); IMMATURE GRAN PERCENT AUTO 0 % (0-1); LYMPHOCYTES ABSOLUTE AUTO 1.08 K/mm3 (0.84-5.20); LYMPHOCYTES PERCENT AUTO 17 % (21-46); MONOCYTES ABSOLUTE AUTO 0.44 K/mm3 (0.16-1.47); MONOCYTES PERCENT AUTO 7 % (4-13); Mean Corpuscular HGB 30.7 pg (26.0-34.0); Mean Corpuscular HGB Conc 34.9 g/dL (31.5-36.5); Mean Corpuscular Volume 88 fL (80-100); Mean Platelet Volume 9.7 fL (9.1-12.4); NEUTROPHILS ABSOLUTE AUTO 4.99 K/mm3 (1.96-9.15); NEUTROPHILS PERCENT AUTO 76 % (41-73); Platelet Count 184 K/mm3 (150-400); RDW Coefficient Variation 12.6 % (11.7-14.2); RDW Standard Deviation 40.6 fL (35.1-46.3); Red Blood Cell Count 5.34 M/mm3 (4.30-5.90); White Blood Cell Count 6.54 K/mm3 (4.00-11.30)
[2021-04-03 20:41] LABS: Alanine Aminotransfer (ALT/SGP 60 U/L (12-78); Albumin, Blood 3.7 g/dL (3.4-5.0); Albumin/Globulin Ratio 0.8 (0.8-1.8); Alk Phos 100 U/L (50-136); Anion Gap 6 mmol/L (6-16); Aspartate Aminotrans (AST/SGOT 37 U/L (12-37); Bilirubin, Total 0.8 mg/dL (0.1-1.0); Blood Urea Nitrogen 17 mg/dL (8-24); Bun/Creatinine Ratio 26.4 (12.0-20.0); CO2, Blood 26 mmol/L (21-32); Calcium, Blood 8.9 mg/dL (8.5-10.1); Chloride, Blood 103 mmol/L (98-108); Creatinine, Blood 0.64 mg/dL (0.60-1.20); Globulin, Blood 4.6 g/dL (2.2-4.0); Glomerular Filtration Rate >60 (60-); Glucose, Blood 199 mg/dL (70-99); Potassium, Blood 3.8 mmol/L (3.5-5.5); Sodium, Blood 135 mmol/L (136-145); Total Protein, Blood 8.3 g/dL (6.4-8.2); Troponin I <0.015 ng/mL (0.000-0.040)
[2021-04-04] MEDS ORDERED: ONDA4ODT MM (00:17)
== END 2021-04-04 00:24 | disposition home or self-care (01) ==
LOC: ER 18:48
PROVIDERS: Physician Assistant
DX: U07.1 COVID-19 (principal); R51.9 Headache, unspecified; R00.0 Tachycardia, unspecified; E11.9 Type 2 diabetes mellitus without complications; Z79.4 Long term (current) use of insulin; Z87.891 Personal history of nicotine dependence; Z88.0 Allergy status to penicillin
CPT/HCPCS: 36415; 71045; 80053; 84484; 85025; 93005; 93010; 96361; 96374; 96375; 99285-25; A9270; J1885; J2405; J7030

== ENCOUNTER → 2021-04-07 | Outpatient (CLI) | payer OTHER ==
[~2021-04-07] MED LIST changes: +ONDA4ODT MM
[2021-04-07 15:30] LABS: Hematocrit 46.2 % (37.0-53.0); Hemoglobin 16.7 g/dL (13.5-17.5); Mean Corpuscular HGB 30.5 pg (26.0-34.0); Mean Corpuscular HGB Conc 36.1 g/dL (31.5-36.5); Mean Corpuscular Volume 85 fL (80-100); Mean Platelet Volume 9.5 fL (9.1-12.4); Platelet Count 179 K/mm3 (150-400); RDW Coefficient Variation 12.9 % (11.7-14.2); RDW Standard Deviation 39.9 fL (35.1-46.3); Red Blood Cell Count 5.47 M/mm3 (4.30-5.90); White Blood Cell Count 8.72 K/mm3 (4.00-11.30)
[2021-04-07 15:36] LABS: Alanine Aminotransfer (ALT/SGP 25 U/L (12-78); Albumin, Blood 2.9 g/dL (3.4-5.0); Albumin/Globulin Ratio 0.6 (0.8-1.8); Alk Phos 82 U/L (40-126); Anion Gap 16 mmol/L (6-16); Aspartate Aminotrans (AST/SGOT 24 U/L (12-37); Bilirubin, Total 0.7 mg/dL (0.1-1.0); Blood Urea Nitrogen 32 mg/dL (8-24); Bun/Creatinine Ratio 27.4 (12.0-20.0); CO2, Blood 20 mmol/L (21-32); Calcium, Blood 8.5 mg/dL (8.5-10.1); Chloride, Blood 93 mmol/L (98-108); Creatinine, Blood 1.17 mg/dL (0.60-1.20); Glomerular Filtration Rate >60 (60-); Glucose, Blood 410 mg/dL (70-99); Potassium, Blood 4.4 mmol/L (3.5-5.5); Sodium, Blood 129 mmol/L (136-145); Total Protein, Blood 7.9 g/dL (6.4-8.2)
[2021-04-07 16:19] LABS: BAND PERCENT MAN 11 % (0-8); BASOPHILS PERCENT MAN 0 % (0-2); EOSINOPHILS PERCENT MAN 0 % (0-6); LYMPHOCYTES ABSOLUTE MAN 1.48 K/mm3 (0.84-5.20); LYMPHOCYTES PERCENT MAN 17 % (21-46); MONOCYTES ABSOLUTE MAN 0.69 K/mm3 (0.16-1.47); MONOCYTES PERCENT MAN 8 % (4-13); NEUTROPHILS ABSOLUTE MAN 6.54 K/mm3 (1.96-9.15); SEG NEUTROPHILS PERCENT MAN 64 % (41-73); TOTAL CELLS COUNTED 100
== END | disposition home or self-care (01) ==
LOC: LAB SHORT 15:22 → LAB 15:22 → LAB EV 15:22
PROVIDERS: Family Medicine
DX: E11.9 Type 2 diabetes mellitus without complications (principal)
CPT/HCPCS: 80053; 85025

== ENCOUNTER 2022-01-20 02:48 | Inpatient (IN) | payer OTHER ==
[~2022-01-20] VITALS: Ht 190.5 cm; Wt 106.7 kg
[2022-01-20 05:17] LABS: BASOPHILS ABSOLUTE AUTO 0.04 K/mm3 (0.00-0.23); BASOPHILS PERCENT AUTO 0 % (0-2); EOSINOPHILS ABSOLUTE AUTO 0.03 K/mm3 (0.00-0.68); EOSINOPHILS PERCENT AUTO 0 % (0-6); Hematocrit 44.6 % (37.0-53.0); Hemoglobin 16.7 g/dL (13.5-17.5); IMMATURE GRAN ABSOLUTE AUTO 0.05 K/mm3 (0.00-0.10); IMMATURE GRAN PERCENT AUTO 0 % (0-1); LYMPHOCYTES ABSOLUTE AUTO 1.85 K/mm3 (0.84-5.20); LYMPHOCYTES PERCENT AUTO 12 % (21-46); MONOCYTES ABSOLUTE AUTO 0.85 K/mm3 (0.16-1.47); MONOCYTES PERCENT AUTO 6 % (4-13); Mean Corpuscular HGB 31.9 pg (26.0-34.0); Mean Corpuscular HGB Conc 37.4 g/dL (31.5-36.5); Mean Corpuscular Volume 85 fL (80-100); Mean Platelet Volume 8.9 fL (9.1-12.4); NEUTROPHILS ABSOLUTE AUTO 12.34 K/mm3 (1.96-9.15); NEUTROPHILS PERCENT AUTO 81 % (41-73); NRBC ABSOLUTE 0.02 K/mm3 (0.00-0.02); NRBC Auto 0.1 /100 WBC (0.0-0.2); Platelet Count 298 K/mm3 (150-400); RDW Coefficient Variation 12.3 % (11.7-14.2); RDW Standard Deviation 37.3 fL (35.1-46.3); Red Blood Cell Count 5.23 M/mm3 (4.30-5.90); White Blood Cell Count 15.16 K/mm3 (4.00-11.30)
[2022-01-20 05:29] LABS: Albumin, Blood 3.4 g/dL (3.4-5.0); Albumin/Globulin Ratio 0.7 (0.8-1.8); Alk Phos 122 U/L (50-136); Anion Gap 9 mmol/L (6-16); Bilirubin, Total 2.5 mg/dL (0.1-1.0); Blood Urea Nitrogen 14 mg/dL (8-24); Bun/Creatinine Ratio 91.5 (12.0-20.0); CO2, Blood 24 mmol/L (21-32); Chloride, Blood 96 mmol/L (98-108); Creatinine, Blood 0.15 mg/dL (0.60-1.20); Globulin, Blood 4.6 g/dL (2.2-4.0); Glomerular Filtration Rate 197 (60-); Glucose, Blood 406 mg/dL (70-99); Potassium, Blood 4.7 mmol/L (3.5-5.5); Sodium, Blood 129 mmol/L (136-145)
[2022-01-20 06:31] LABS: Triglycerides >4000 mg/dL (30-140)
[2022-01-20 12:55] LABS: Source, Urine Clean Catch
[2022-01-20 13:04] LABS: Appearance, Urine Clear (Clear); Bilirubin, Urine Neg (Neg); Blood, Urine 1+ (Neg); Color, Urine Yellow (P-Yellow); Glucose Qualitative, Urine 4+ (Neg); Ketones, Urine 4+ (Neg); Leukocyte Esterase, Urine Neg (Neg); Nitrite, Urine Neg (Neg); Protein, Urine 2+ (Neg); Urobilinogen, Urine NORM (Normal)
[2022-01-20 13:21] LABS: White Blood Cells, Urine 0-2 /hpf (0-5)
[2022-01-20 13:22] LABS: Bacteria Few /hpf; Squamous Epithelial Cells Not Seen /hpf (Few)
--- NOTE | 2022-01-20 14:28 | NUR ---
SHIFT SUMMARY 1000 RECEIVED PT TO RM 325 VIA ZEN FROM ER. PT ADMITTED FOR PANCREATITIS. RECEIVED REPORT FROM CHU PETERSON. MEDS AND IVF'S GIVEN IN ER. DILAUDID TUB RIDER SET UP FOR PAIN MANAGEMENT. PT REPORTS FEELING BETTER NOW. ABLE TO TALK AND CONVERSE NORMALLY. UP INDEPENDENTLY TO BTHRM. UA OBTAINED AND SENT PER ORDERS. PT NPO AT THIS TIME. TYPE I DIABETIC. LR INFUSING AT THIS TIME. PT'S TO RM AT BS WHEN PT ADMITTED. DENIES FURTHER NEEDS AT THIS TIME. CALL LT IN REACH.
--- NOTE | 2022-01-20 17:19 | NUR ---
PT ADMITTED TO THE MEDICAL FLOOR AT 1000. PT TRANSFERRED FROM [facility] TO [facility] INDEPENDANTLY. PT BP 146/91, HR 122, RR 30. PT HAD A 10/10 PAIN IN THE UPPER ABDOMNIAL PAIN. PT HAD ORDERS FOR IV INFUSION OF LR AND SHERIFF PUMP. PT INFUSING SECOND BAG OF LR. PT ASSESSMENT COMPLETE. PT RECEVIED IV ZOFRAN, PEPCID. PT PAIN LEVEL REASSESSED AFTER THE SHERIFF PUMP WAS ADMINSTERED. PT PAIN LEVEL IS 5/10 PAIN. PT BP 135/93, HR 123, RR 14.PT SPOUSE WITH PT FROM TRANSFER, CURRENTLY AND OVER NIGHT. PT IS NPO, PT REQUESTED ZOFRAN. PT HAD AN ORDERED FOR URINE CULUTRE, URINE CULTURE COLLECTED AND NEG FOR BACTERIA. PT IS RESTING IN BED WITH CALL LIGHT WITHIN REACH.
--- NOTE | 2022-01-21 04:56 | NUR ---
PT IS NPO, PAIN MEDICATION GIVEN VIA SUPERVISOR PLASTIC SHEETS PUMP. MEDICATED THIS SHIFT FOR NAUSEA; IND TO RESTROOM. CBG Q6 ON S/S INSULIN COVERAGE.
[2022-01-21 05:31] LABS: Hematocrit 46.8 % (37.0-53.0); Hemoglobin 15.9 g/dL (13.5-17.5); Mean Corpuscular HGB 29.9 pg (26.0-34.0); Mean Corpuscular Volume 88 fL (80-100); Mean Platelet Volume 8.8 fL (9.1-12.4); Platelet Count 156 K/mm3 (150-400); RDW Coefficient Variation 12.8 % (11.7-14.2); RDW Standard Deviation 41.2 fL (35.1-46.3); Red Blood Cell Count 5.32 M/mm3 (4.30-5.90); White Blood Cell Count 11.01 K/mm3 (4.00-11.30)
[2022-01-21 06:28] LABS: Albumin, Blood 3.1 g/dL (3.4-5.0); Albumin/Globulin Ratio 0.8 (0.8-1.8); Bilirubin, Total 1.1 mg/dL (0.1-1.0); Bun/Creatinine Ratio 17.3 (12.0-20.0); Calcium, Blood 8.3 mg/dL (8.5-10.1); Creatinine, Blood 0.52 mg/dL (0.60-1.20); Globulin, Blood 3.9 g/dL (2.2-4.0); Potassium, Blood 4.3 mmol/L (3.5-5.5)
--- NOTE | 2022-01-21 13:55 | NUR ---
SHIFT SUMMARY PT RESTING QUIETLY AT START OF SHIFT. WOKE EASILY FOR CARE. IVF'S INFUSING PER EMAR. PT USING RUBBER CHEMIST PAIN PUMP NEEDED. UP INDEPENDENTLY TO BTHRM. REMAINS NPO AT THIS TIME. DR GREEN IN TO SEE PT THIS AM. PT REPORTED THAT HE MAY ADVANCE DIET IF ABLE TO TOLERATE PO. PT CONTINUES TO HAVE PAIN AND NAUSEA; DECLINES TO HAVE DIET ADVANCED YET. MULTIPLE VISITORS TO THIS AM FOR A WHILE. CALLED FOR NAUSEA MEDICATION X1 TO PRESENT THIS SHIFT. CALL LT IN REACH. ABLE TO MAKE NEEDS KNOWN.
[2022-01-22 04:56] LABS: Hematocrit 43.5 % (37.0-53.0); Mean Corpuscular HGB 30.2 pg (26.0-34.0); Mean Corpuscular HGB Conc 34.5 g/dL (31.5-36.5); Mean Corpuscular Volume 88 fL (80-100); Mean Platelet Volume 8.9 fL (9.1-12.4); Platelet Count 174 K/mm3 (150-400); RDW Coefficient Variation 12.9 % (11.7-14.2); RDW Standard Deviation 41.4 fL (35.1-46.3); Red Blood Cell Count 4.97 M/mm3 (4.30-5.90); White Blood Cell Count 10.59 K/mm3 (4.00-11.30)
[2022-01-22 05:34] LABS: Bun/Creatinine Ratio 21.3 (12.0-20.0); Calcium, Blood 8.9 mg/dL (8.5-10.1); Creatinine, Blood 0.42 mg/dL (0.60-1.20); Potassium, Blood 3.7 mmol/L (3.5-5.5)
--- NOTE | 2022-01-22 07:15 | NUR ---
PT STARTED ON ICE CHIPS DIET PRIOR TO CHANGE OF SHIFT LAST NIGHT. PT DID NOT TOLERATE WELL COMPLAINED OF ABDOMINAL PAIN AND DID NOT HAVE ANY ICE CHIPS TILL THIS MORNING 0600. PT CONTINUES TO BE ON DILAUDID PUMP AND PUMP MANAGED WITH ASSISTANCE FROM DIAL MARKER. PT REPORTED TWO EPISODES OF LIQUID STOOLS. BLOOD GLUCOSE MONITORED PER ORDER. NO NEW COMPAINS OR CONCERNS THIS SHIFT.
--- NOTE | 2022-01-22 17:17 | NUR ---
SHIFT SUMMARY- PT PLEASANT TO CARE FOR. PT INDEPENDANT IN ROOM. FAMILY OFTEN AT BEDSIDE. NO C/O OF PAIN, WITH KINDERGARTEN ASSISTANT PUMP INTACT. NO N/V REPORTED BY PT. PT APPETITE GOOD. PT TOLERATING NEW DIET TO CLEARS WELL. PT LEFT ARM NO LONGER RED OR SWOLLEN. PT REPORTS ARM BETTER AND HAS NOT NOTED SWELLING. PT RESTING COMFORTABLY WITH CALL LIGHT WITHIN REACH.
--- NOTE | 2022-01-23 04:10 | NUR ---
SHIFT SUMMARY ADMITTED FOR PANCREATITIS. FULL CODE. NS INFUSING @ 100 ML/HR. PT WILL DC HOME W/FAMILY WHEN STABLE. HE IS TOLERATING FULL LIQUID DIET. NO N/V REPORTED. RIGHT ABDOMEN IS FIRM TO TOUCH. HE IS TOLERATING PO PAIN RX THIS SHIFT TO GOOD EFFECT. ACHS CHEMSTICKS THIS SHIFT. RA. INDEPENDENT IN ROOM.
[2022-01-23 04:56] LABS: Hematocrit 43.5 % (37.0-53.0); Hemoglobin 14.7 g/dL (13.5-17.5); Mean Corpuscular HGB 29.7 pg (26.0-34.0); Mean Corpuscular HGB Conc 33.8 g/dL (31.5-36.5); Mean Corpuscular Volume 88 fL (80-100); Mean Platelet Volume 8.8 fL (9.1-12.4); Platelet Count 192 K/mm3 (150-400); Red Blood Cell Count 4.95 M/mm3 (4.30-5.90); White Blood Cell Count 9.78 K/mm3 (4.00-11.30)
[2022-01-23 05:30] LABS: Albumin, Blood 2.6 g/dL (3.4-5.0); Albumin/Globulin Ratio 0.6 (0.8-1.8); Bilirubin, Total 0.8 mg/dL (0.1-1.0); Bun/Creatinine Ratio 21.2 (12.0-20.0); Calcium, Blood 8.8 mg/dL (8.5-10.1); Creatinine, Blood 0.47 mg/dL (0.60-1.20); Globulin, Blood 4.4 g/dL (2.2-4.0); Potassium, Blood 3.6 mmol/L (3.5-5.5)
--- NOTE | 2022-01-23 10:37 | NUR ---
PT REPORTED OF R SIDE SWELLING WITH PAIN. PT STATED HE DISCUSSED WITH DR DURING AM ROUNDS.
--- NOTE | 2022-01-23 17:15 | NUR ---
SHIFT SUMMARY- PT INDEPENDANT IN ROOM. PT WAS CHANGE BACKED TO NPO PER DR ORDERS. PT C/O OF R SIDE PAIN BUT STATES THAT PAIN IS SUBSIDING THE DAY PROGRESSES. IV FLUIDS RUNNING AT 100HR THROUGHOUT SHIFT. PT VSS. PT RESTING WITH CALL LIGHT WITHIN REACH.
--- NOTE | 2022-01-24 07:17 | NUR ---
SHIFT SUMMARY PATIENT ALERT AND ORIENTED. MEDICATED PER EMAR FOR PAIN. NO ACUTE ISSUES NOTED OVERNIGHT. CALL LIGHT WITHIN REACH. REPORT GIVEN TO ONCOMING RN.
--- NOTE | 2022-01-24 17:29 | NUR ---
SHIFT SUMMARY PT A&O X 4. VSS. DIET ADVANCED TODAY. TOLERATING WELL. NO C/O NAUSEA. MEDICATED 2 X'S THIS SHIFT FOR C/O BACK PAIN. IVF'S DC'D. PT DRINKING & TOLERATING FLUIDS. PT INDEPENDENT IN THE ROOM FOR RESTROOM USE. ANTICIPATE POSSIBLE DC TOMORROW.
--- NOTE | 2022-01-25 02:49 | NUR ---
SHIFT SUMMARY NO ACUTE CHANGES OVERNIGHT. PT REPORTS MINIMAL ABD PAIN 3/10 PAIN LEVEL T/O SHIFT. MEDICATED WITH 2 TAB OF 5/325 NORCO,Q4-PRN. INDEPENDENT IN ROOM. TOLERATES PO INTAKE DENIES NAUSEA AND VOMITING. VSS. DENIES CHEST PAIN, DIZZINESS, AND SOB. AOX4. VOIDING WITHOUT ANY ISSUE. BT ARE ACTIVE. LUNGS ARE CLEAR. CALL LIGHT WITHIN REACH. WILL PROVIDE REPORT TO ONCOMING NURSE.
[2022-01-25] MEDS ORDERED: INSULANPEN SC (10:49)
[2022-01-25] MEDS ORDERED: FENOFIBRATE PO (11:39)
[2022-01-25] MEDS ORDERED: ATOR40TA PO (11:39)
[2022-01-25] MEDS ORDERED: FISH OIL 1,2001 EAC4 PO (11:40)
--- NOTE | 2022-01-25 13:21 | NUR ---
LATE ENTRY/DC HOME: PT TOLERATING FOOD & DRINK WITH NO ABD PAIN OR NAUSEA. HE DOES C/O R SIDED BACK PAIN, MEDICATED PER EMAR WITH GOOD RESULTS. AT 1200 PT DC'D HOME. PIV DC'D WITH CATH TIP INTACT. SITE WITH NO REDNESS OR SWELLING. DC INSTRUCTIONS GIVEN TO PT, PT VERBALIZED UNDERSTANDING. SCRIPTS FAXED TO [facility] PER PT REQUEST. ALL CONCERNS & QUESTIONS ANSWERED. IS HERE TO DRIVE PT HOME.
== END 2022-01-25 12:25 | disposition home or self-care (01) | DRG 439 ==
LOC: ER 02:48 → MEDS 07:46 → ENPENDDIS 01-25 10:36 → MEDS 01-25 12:25
PROVIDERS: Student in an Organized Health Care Education/Training Program; ADMIT Internal Medicine
DX: K85.90 Acute pancreatitis without necrosis or infection, unspecified (principal); R65.10 Systemic inflammatory response syndrome (SIRS) of non-infectious origin without acute organ dysfunction; R16.2 Hepatomegaly with splenomegaly, not elsewhere classified; E78.1 Pure hyperglyceridemia; E11.65 Type 2 diabetes mellitus with hyperglycemia; E78.5 Hyperlipidemia, unspecified; R74.8 Abnormal levels of other serum enzymes; G40.909 Epilepsy, unspecified, not intractable, without status epilepticus; Z98.890 Other specified postprocedural states; Z87.19 Personal history of other diseases of the digestive system; Z79.4 Long term (current) use of insulin; Z79.899 Other long term (current) drug therapy; Z88.0 Allergy status to penicillin; Z87.891 Personal history of nicotine dependence
CPT/HCPCS: 36415; 74177; 80048; 80053; 81001; 82947; 83690; 84478; 85025; 85027; 96361; 96374; 96375; 96376; 99285-25; A9270; J1170; J1815; J1885; J2405; J7030; J7120; Q9967

== ENCOUNTER → 2022-08-09 | Outpatient (CLI) | payer OTHER ==
[~2022-08-09] MED LIST changes: +ATOR40TA PO; +FENOFIBRATE PO; +FISH OIL 1,2001 EAC4 PO
[2022-08-09 09:48] LABS: BASOPHILS ABSOLUTE AUTO 0.02 K/mm3 (0.00-0.23); BASOPHILS PERCENT AUTO 0 % (0-2); EOSINOPHILS ABSOLUTE AUTO 0.09 K/mm3 (0.00-0.68); EOSINOPHILS PERCENT AUTO 2 % (0-6); Hematocrit 45.2 % (37.0-53.0); Hemoglobin 15.7 g/dL (13.5-17.5); IMMATURE GRAN ABSOLUTE AUTO 0.01 K/mm3 (0.00-0.10); IMMATURE GRAN PERCENT AUTO 0 % (0-1); LYMPHOCYTES ABSOLUTE AUTO 2.55 K/mm3 (0.84-5.20); LYMPHOCYTES PERCENT AUTO 42 % (21-46); MONOCYTES PERCENT AUTO 7 % (4-13); Mean Corpuscular HGB 29.7 pg (26.0-34.0); Mean Corpuscular HGB Conc 34.7 g/dL (31.5-36.5); Mean Corpuscular Volume 85 fL (80-100); Mean Platelet Volume 8.7 fL (9.1-12.4); NEUTROPHILS ABSOLUTE AUTO 2.97 K/mm3 (1.96-9.15); NEUTROPHILS PERCENT AUTO 49 % (41-73); Platelet Count 163 K/mm3 (150-400); RDW Standard Deviation 37.6 fL (35.1-46.3); Red Blood Cell Count 5.29 M/mm3 (4.30-5.90); White Blood Cell Count 6.04 K/mm3 (4.00-11.30)
[2022-08-09 10:55] LABS: Alanine Aminotransfer (ALT/SGP 34 U/L (12-78); Albumin, Blood 3.8 g/dL (3.4-5.0); Albumin/Globulin Ratio 1.1 (0.8-1.8); Alk Phos 109 U/L (50-136); Anion Gap 7 mmol/L (6-16); Aspartate Aminotrans (AST/SGOT 19 U/L (12-37); Bilirubin, Total 0.8 mg/dL (0.1-1.0); Blood Urea Nitrogen 14 mg/dL (8-24); CHOL/HDL RATIO 6.6; CO2, Blood 24 mmol/L (21-32); Calcium, Blood 8.4 mg/dL (8.5-10.1); Chloride, Blood 104 mmol/L (98-108); Cholesterol 206 mg/dL (50-200); Creatinine, Blood 0.67 mg/dL (0.60-1.20); Globulin, Blood 3.5 g/dL (2.2-4.0); Glomerular Filtration Rate 125 (60-); Glucose, Blood 200 mg/dL (70-99); HDL Cholesterol 31 mg/dL (>39); LDL/HDL RATIO Unable to Calculate; Low Density Lipoprotein Chol Unable to Calculate mg/dL (0-110); Potassium, Blood 3.7 mmol/L (3.5-5.5); Sodium, Blood 135 mmol/L (136-145); Thyroid Stimulating Hormone 0.496 uIU/mL (0.360-4.800); Total Protein, Blood 7.3 g/dL (6.4-8.2); Triglycerides 496 mg/dL (30-140); Very Low Density Lipoprot Chol Unable to Calculate mg/dL (6-28)
== END | disposition home or self-care (01) ==
LOC: LAB SHORT 08:07
PROVIDERS: Family Medicine
DX: E78.1 Pure hyperglyceridemia (principal); E11.9 Type 2 diabetes mellitus without complications
CPT/HCPCS: 36415; 80053; 80061; 84443; 85025

== ENCOUNTER 2025-06-20 22:35 | Emergency (ER) | payer OTHER ==
[~2025-06-20] VITALS: Ht 188 cm; Wt 104.3 kg
[~2025-06-20 22:35] MED LIST changes: +ALOGLIPTIN25 M1 PO; +METO25 PO; +PERCOCET 10-321 EA13 PO; +STEGLATRO15 MG PO
[2025-06-20 22:57] LABS: BASOPHILS ABSOLUTE AUTO 0.04 K/mm3 (0.00-0.23); BASOPHILS PERCENT AUTO 0 % (0-2); EOSINOPHILS ABSOLUTE AUTO 0.12 K/mm3 (0.00-0.68); EOSINOPHILS PERCENT AUTO 1 % (0-6); Hematocrit 47.8 % (37.0-53.0); Hemoglobin 16.7 g/dL (13.5-17.5); IMMATURE GRAN ABSOLUTE AUTO 0.04 K/mm3 (0.00-0.10); IMMATURE GRAN PERCENT AUTO 0 % (0-1); LYMPHOCYTES ABSOLUTE AUTO 3.64 K/mm3 (0.84-5.20); LYMPHOCYTES PERCENT AUTO 37 % (21-46); MONOCYTES ABSOLUTE AUTO 0.53 K/mm3 (0.16-1.47); MONOCYTES PERCENT AUTO 5 % (4-13); Mean Corpuscular HGB Conc 34.9 g/dL (31.5-36.5); Mean Corpuscular Volume 88 fL (80-100); NEUTROPHILS ABSOLUTE AUTO 5.41 K/mm3 (1.96-9.15); NEUTROPHILS PERCENT AUTO 55 % (41-73); NRBC ABSOLUTE 0.00 K/mm3 (0.00-0.02); NRBC Auto 0.0 /100 WBC (0.0-0.2); Platelet Count 189 K/mm3 (150-400); RDW Coefficient Variation 12.2 % (11.7-14.2); RDW Standard Deviation 38.9 fL (35.1-46.3)
[2025-06-20] MEDS ORDERED: HYDROmorphone HCl/Pf 1MG SYR IV ONE (23:10)
[2025-06-20 23:16] LABS: Alanine Aminotransfer (ALT/SGP 43 U/L (12-78); Albumin, Blood 4.0 g/dL (3.4-5.0); Albumin/Globulin Ratio 1.1 (0.8-1.8); Anion Gap 9 mmol/L (3-11); Aspartate Aminotrans (AST/SGOT 63 U/L (12-37); Bilirubin, Total 0.4 mg/dL (0.1-1.0); Blood Urea Nitrogen 14 mg/dL (8-24); CO2, Blood 26 mmol/L (21-32); Calcium, Blood 8.8 mg/dL (8.5-10.1); Chloride, Blood 105 mmol/L (98-108); Creatinine, Blood 0.65 mg/dL (0.60-1.20); Globulin, Blood 3.6 g/dL (2.2-4.0); Glucose, Blood 211 mg/dL (70-99); Potassium, Blood 3.9 mmol/L (3.5-5.5); Sodium, Blood 136 mmol/L (136-145); Total Protein, Blood 7.6 g/dL (6.4-8.2)
[2025-06-20 23:58] LABS: Thyroid Stimulating Hormone 0.575 uIU/mL (0.360-4.800)
[2025-06-21 00:24] LABS: Ethanol (Alcohol), Blood, Med <3 mg/dL
[2025-06-21] MEDS ORDERED: ONDA4ODT MM (01:00)
[2025-06-21] MEDS ORDERED: LIDO700A20 TOP (01:00)
[2025-06-21 01:15] VITALS: BP 140/92
== END 2025-06-21 01:25 | disposition home or self-care (01) ==
LOC: ER 22:35
PROVIDERS: Student in an Organized Health Care Education/Training Program
DX: M25.511 Pain in right shoulder (principal); R11.2 Nausea with vomiting, unspecified; R00.0 Tachycardia, unspecified; R74.01 Elevation of levels of liver transaminase levels; E11.9 Type 2 diabetes mellitus without complications; E78.5 Hyperlipidemia, unspecified; Z87.891 Personal history of nicotine dependence; Z88.8 Allergy status to other drugs, medicaments and biological substances; Z88.0 Allergy status to penicillin; Z79.4 Long term (current) use of insulin; Z79.899 Other long term (current) drug therapy
CPT/HCPCS: 71046; 80053; 80320; 84443; 84484; 85025; 93005; 93010; 96374; 99285-25; J1171